=== PATIENT | male | born 1965 | race American Indian/Alaskan Native ===

== ENCOUNTER 2019-04-03 17:38 | Emergency (ER) | payer MEDICAID, OTHER | END 2019-04-03 18:49 | disposition left against medical advice (07) | LOC: DL.ED 17:38 | DX: Z53.21 Procedure and treatment not carried out due to patient leaving prior to being seen by health care provider (principal) ==

== ENCOUNTER 2019-04-04 13:06 | Emergency (ER) | payer MEDICAID ==
[2019-04-04 13:20] VITALS: BP 123/67; PULSE 80
[2019-04-04] MEDS ORDERED: Albuterol/Ipratropium 3.0-0.5 MG/3 ML Neb Soln NEB ONE (13:28)
[2019-04-04] MEDS ORDERED: Diphtheria,Pertussis(Acell),Tetanus Vaccine 0.5 ML SDV IM ONE (13:30)
--- NOTE | 2019-04-04 14:08 | EDM.PDOC ---
ED HPI GENERAL MEDICAL PROBLEM - General Chief Complaint: Laceration Stated Complaint: CUT BY TIN Time Seen by Provider: 04/04/19 13:15 Source of Information: Reports: Patient, RN, RN Notes Reviewed History Limitations: Reports: No Limitations - History of Present Illness INITIAL COMMENTS - FREE TEXT/NARRATIVE: Pt to ER with c/o cut on left wrist. Pt states he cut the wrist on tin last evening about 5:00pm. He states he came to the ER last night but it was very busy and he went home. Laceration is held together with steri strips. Patient states he states it has been a long time since he has had a tetanus vaccination. Patient is very concerned that he hit the bone with the tin, and is concerned that he will develop an infection. Denies fever or chills. Onset: Sudden Onset Date: 04/03/19 - Related Data Allergies Allergy/AdvReac Type Severity Reaction Status Date / Time No Known Allergies Allergy Verified 04/04/19 13:11 Home Meds: Home Meds Lisinopril 20 mg PO DAILY 08/03/14 [History] Aspirin [Halfprin] 81 mg PO DAILY 09/03/18 [History] Ibuprofen 200 mg PO ASDIRECTED PRN 09/03/18 [History] Past Medical History HEENT History: Reports: Impaired Vision, Other (See Below) Other HEENT History: TOP DENTURE PLATE. WEARS CORRECTIVE LENS Cardiovascular History: Reports: Hypertension Respiratory History: Reports: None Gastrointestinal History: Reports: None Genitourinary History: Reports: None Musculoskeletal History: Reports: Arthritis, Fracture, Other (See Below) Other Musculoskeletal History: FRACTURED LEFT ARM X3 WHEN YOUNG. FRACTURED HEEL ON LEFT FOOT. ROTATOR CUFF INJURY LEFT SHOULDER 2011 Neurological History: Reports: None Psychiatric History: Reports: None Endocrine/Metabolic History: Reports: None Hematologic History: Reports: None Immunologic History: Reports: None Oncologic (Cancer) History: Reports: None Dermatologic History: Reports: None - Infectious Disease History Infectious Disease History: Reports: None - Past Surgical History Head Surgeries/Procedures: Reports: None HEENT Surgical History: Reports: Oral Surgery Cardiovascular Surgical History: Reports: None Respiratory Surgical History: Reports: None GI Surgical History: Reports: None Male Surgical History: Reports: None Endocrine Surgical History: Reports: None Neurological Surgical History: Reports: None Musculoskeletal Surgical History: Reports: Shoulder Surgery Other Musculoskeletal Surgeries/Procedures:: left rotator cuff repair Oncologic Surgical History: Reports: None Dermatological Surgical History: Reports: None Social & Family History - Family History Family Medical History: Noncontributory - Tobacco Use Smoking Status *Q: Never Smoker Second Hand Smoke Exposure: Yes - Caffeine Use Caffeine Use: Reports: Coffee, Soda Other Caffeine Use: AVERAGE OF 2 CUPS OF COFFEE DAILY, 2-3 CANS OF SODA POP DAILY - Living Situation & Occupation Living situation: Reports: , with Family Occupation: Employed ED ROS GENERAL - Review of Systems Review Of Systems: ROS reveals no pertinent complaints other than HPI. ED EXAM, SKIN/RASH Exam: See Below Exam Limited By: No Limitations General Appearance: Alert, WD/WN, Anxious, Moderate Distress Eye Exam: Bilateral Eye: EOMI, Normal Inspection Ears: Normal External Exam, Hearing Grossly Normal Nose: Normal Inspection Throat/Mouth: Normal Inspection, Normal Voice, No Airway Compromise Head: Atraumatic, Normocephalic Neck: Normal Inspection, Supple, Non-Tender, Full Range of Motion Respiratory/Chest: No Respiratory Distress, Lungs Clear, Normal Breath Sounds, No Accessory Muscle Use, Chest Non-Tender Cardiovascular: Normal Peripheral Pulses, Regular Rate, Rhythm, No Edema, No Gallop, No JVD, No Murmur, No Rub Peripheral Pulses: 2+: Radial (L), Radial (R) GI/Abdominal: Normal Bowel Sounds, Soft, Non-Tender (Male) Exam: Deferred Rectal (Males) Exam: Deferred Back Exam: Normal Inspection, Full Range of Motion, NT Extremities: No Pedal Edema, Normal Capillary Refill, Arm Pain (left wrist), Limited Range of Motion (left wrist) Neurological: Alert, Oriented, CN II-XII Intact, Normal Cognition, Normal Gait, Normal Reflexes, No Motor/Sensory Deficits Psychiatric: Normal Affect, Normal Mood, Anxious Skin: Warm, Dry, Wound/Incision (7.5cm laceration to dorsal left wrist, held together with steri strips, no drainage, dry, mild erythema at margin edges.) Location, Skin: Upper Extremity, Left Characteristics: Linear Lymphatic: No Adenopathy Course - Vital Signs Last Recorded V/S: Last Vital Signs Temp 98.4 F 04/04/19 13:09 Pulse 80 04/04/19 13:09 Resp 16 04/04/19 13:09 BP 123/67 04/04/19 13:09 Pulse Ox 97 04/04/19 13:09 - Orders/Labs/Meds Orders: Active Orders 24 hr Category Date Time Status RT Aerosol Therapy [RC] ASDIRECTED Care 04/04/19 13:28 Inactive Vaccines to be Administered [RC] PER UNIT ROUTINE Care 04/04/19 13:30 Active Wrist Comp Min 3V Lt [CR] Urgent Exams 04/04/19 13:24 Taken Meds: Medications Discontinued Medications Generic Name Dose Route Start Last Admin Trade Name Kennedy PRN Reason Stop Dose Admin Albuterol/Ipratropium 3 ml 04/04/19 13:28 Duoneb 3.0-0.5 Mg/3 Ml NEB 04/04/19 13:29 ONETIME ONE Diphtheria/Tetanus/Acell Pertussis 0.5 ml 04/04/19 13:30 04/04/19 13:37 Adacel IM 04/04/19 13:31 0.5 ml .ONCE ONE Administration - Radiology Interpretation Free Text/Narrative:: Left wrist xray: FINDINGS: Bones/joints: There is no evidence of acute fracture. There is no evidence of joint malalignment or dislocation. Soft tissues: Normal. IMPRESSION: There is no evidence of acute fracture. Thank you for allowing us to participate in the care of your patient. Dictated and Authenticated by: Sebastian Chavez DO 04/04/2019 2:36 PM Central Time ([place] & [place]) See rad report Departure - Departure Time of Disposition: 14:41 Disposition: Home, Self-Care 01 Condition: Fair Clinical Impression: Laceration - Discharge Information *PRESCRIPTION DRUG MONITORING PROGRAM REVIEWED*: No *COPY OF PRESCRIPTION DRUG MONITORING REPORT IN PATIENT RICHIE: No Instructions: Laceration Care, Adult, [id number] Forms: ED Department Discharge Additional Instructions: Continue to monitor for signs of infection, redness, drainage, warmth Continue to use steri strips to the area to keep it together Keep area clean and dry Follow up with your primary care facility if no improvement RX: Cephalexin - My Orders Last 24 Hours: My Active Orders 04/04/19 13:24 Wrist Comp Min 3V Lt [CR] Urgent 04/04/19 13:28 RT Aerosol Therapy [RC] ASDIRECTED 04/04/19 13:30 Vaccines to be Administered [RC] PER UNIT ROUTINE - Assessment/Plan Last 24 Hours: My Active Orders 04/04/19 13:24 Wrist Comp Min 3V Lt [CR] Urgent 04/04/19 13:28 RT Aerosol Therapy [RC] ASDIRECTED 04/04/19 13:30 Vaccines to be Administered [RC] PER UNIT ROUTINE
== END 2019-04-04 14:55 | disposition home or self-care (01) ==
LOC: DL.ED 13:06
DX: S61.512A Laceration without foreign body of left wrist, initial encounter (principal); I10 Essential (primary) hypertension; M19.90 Unspecified osteoarthritis, unspecified site; Z23 Encounter for immunization; Z79.82 Long term (current) use of aspirin; Z79.899 Other long term (current) drug therapy; Z98.890 Other specified postprocedural states; W26.8XXA Contact with other sharp object(s), not elsewhere classified, initial encounter
CPT/HCPCS: 73110-LT; 90471; 90715; 99282; 99283

== ENCOUNTER 2021-03-14 10:27 | Emergency (ER) | payer MEDICAID ==
--- NOTE | 2021-03-14 10:35 | EDM.PDOC ---
ED HPI GENERAL MEDICAL PROBLEM - General Chief Complaint: ENT Problem Stated Complaint: [id number] THINKS HAS SPIDER IN EARS Time Seen by Provider: 03/14/21 10:35 Source of Information: Reports: Patient, Old Records, RN, RN Notes Reviewed History Limitations: Reports: No Limitations - History of Present Illness INITIAL COMMENTS - FREE TEXT/NARRATIVE: Pt presents to ER with c/o of suspected infection in/on both ears. The left ear became swollen and red with purulent drainage about 5 days ago. Pt's friend tried to squeeze pus from the ear, but that made it much worse. Pt thought maybe a spider bit his ear, but then yesterday the right ear started having the same symptoms. Denies fever, chills, N/V or any other symptoms. Onset: Gradual Duration: Day(s): (5) Location: Reports: Other (Ears) Quality: Reports: Ache, Burning Severity: Severe Improves with: Reports: None Worsens with: Reports: None Associated Symptoms: Reports: No Other Symptoms Bilateral Ear Pain Score (Numeric/FACES): 4 - Related Data Allergies Allergy/AdvReac Type Severity Reaction Status Date / Time No Known Allergies Allergy Verified 03/14/21 10:35 Home Meds: Home Meds Lisinopril 20 mg PO DAILY 08/03/14 [History] Aspirin [Halfprin] 81 mg PO DAILY 09/03/18 [History] Ibuprofen 200 mg PO ASDIRECTED PRN 09/03/18 [History] Cyclobenzaprine [Flexeril] 10 mg PO TID PRN 03/14/21 [History] Past Medical History HEENT History: Reports: Impaired Vision, Other (See Below) Other HEENT History: TOP DENTURE PLATE. WEARS CORRECTIVE LENS Cardiovascular History: Reports: Hypertension Respiratory History: Reports: None Gastrointestinal History: Reports: None Genitourinary History: Reports: None Musculoskeletal History: Reports: Arthritis, Fracture, Other (See Below) Other Musculoskeletal History: FRACTURED LEFT ARM X3 WHEN YOUNG. FRACTURED HEEL ON LEFT FOOT. ROTATOR CUFF INJURY LEFT SHOULDER 2010 Neurological History: Reports: None Psychiatric History: Reports: None Endocrine/Metabolic History: Reports: None Hematologic History: Reports: None Immunologic History: Reports: None Oncologic (Cancer) History: Reports: None Dermatologic History: Reports: None - Infectious Disease History Infectious Disease History: Reports: None - Past Surgical History Head Surgeries/Procedures: Reports: None HEENT Surgical History: Reports: Oral Surgery Cardiovascular Surgical History: Reports: None Respiratory Surgical History: Reports: None GI Surgical History: Reports: None Male Surgical History: Reports: None Endocrine Surgical History: Reports: None Neurological Surgical History: Reports: None Musculoskeletal Surgical History: Reports: Shoulder Surgery Other Musculoskeletal Surgeries/Procedures:: left rotator cuff repair Oncologic Surgical History: Reports: None Dermatological Surgical History: Reports: None Social & Family History - Family History Family Medical History: No Pertinent Family History - Caffeine Use Caffeine Use: Reports: Coffee, Soda Other Caffeine Use: AVERAGE OF 2 CUPS OF COFFEE DAILY, 2-3 CANS OF SODA POP DAILY - Living Situation & Occupation Living situation: Reports: , with Family Occupation: Employed ED ROS ENT - Review of Systems Review Of Systems: Comprehensive ROS is negative, except as noted in HPI. ED EXAM, ENT - Physical Exam Exam: See Below Exam Limited By: No Limitations General Appearance: Alert, WD/WN, No Apparent Distress Ears: Hearing Grossly Normal, Auricular Erythema, Auricular Tenderness, Canal Discharge, Canal Material, Canal Swelling. No: Mastoid Swelling, Mastoid Tenderness, TM Bulging, TM Dullness, TM Erythema Nose: Normal Inspection, Normal Mucousa, No Blood Mouth/Throat: Normal Inspection, Normal Gums, Normal Lips, Normal Oropharynx, Normal Teeth Head: Atraumatic, Normocephalic Neck: Normal Inspection, Supple, Non-Tender, Full Range of Motion Respiratory/Chest: No Respiratory Distress, Lungs Clear, Normal Breath Sounds, No Accessory Muscle Use, Chest Non-Tender Cardiovascular: Regular Rate, Rhythm Extremities: Normal Inspection Neurological: Alert, Oriented, No Motor/Sensory Deficits Psychiatric: Normal Mood Skin: Warm, Dry Course - Vital Signs Last Recorded V/S: Last Vital Signs Temp 98 F 03/14/21 10:37 Pulse 82 03/14/21 10:37 Resp 20 03/14/21 10:37 BP 132/93 H 03/14/21 10:37 Pulse Ox 97 03/14/21 10:37 Departure - Departure Time of Disposition: 10:45 Disposition: Home, Self-Care 01 Condition: Good Clinical Impression: Cellulitis of both external ears Otitis externa Qualifiers: Otitis externa type: other infective Chronicity: acute Laterality: bilateral Qualified Code(s): H60.393 - Other infective otitis externa, bilateral - Discharge Information *PRESCRIPTION DRUG MONITORING PROGRAM REVIEWED*: Not Applicable *COPY OF PRESCRIPTION DRUG MONITORING REPORT IN PATIENT RICHIE: Not Applicable Instructions: Cellulitis, Adult, Otitis Externa Forms: ED Department Discharge Additional Instructions: Rx: Ofloxacin Otic Solution Rx: Clindamycin 300mg Rx: Bactroban (Mupirocin) Ointment 2% Follow up in clinic in 3 to 4 days for recheck. Sepsis Event Note (ED) - Focused Exam Vital Signs: Vital Signs Temp Pulse Resp BP Pulse Ox 03/14/21 10:37 98 F 82 20 132/93 H 97
[2021-03-14 10:42] VITALS: BP 132/93; PULSE 82
== END 2021-03-14 10:52 | disposition home or self-care (01) ==
LOC: DL.ED 10:27
DX: H60.393 Other infective otitis externa, bilateral (principal); H60.13 Cellulitis of external ear, bilateral; I10 Essential (primary) hypertension; Z79.82 Long term (current) use of aspirin; Z79.899 Other long term (current) drug therapy
CPT/HCPCS: 87070; 87077; 87186; 99283

== ENCOUNTER 2023-05-11 18:01 | Emergency (ER) | payer MEDICARE, MEDICAID ==
[2023-05-11] MEDS ORDERED: Sodium Chloride 0.9% 10 ML Syringe FLUSH PRN (18:10)
[2023-05-11 18:30] LABS: BASOPHILS PERCENT AUTO 0.3 % (0.0-1.0); HEMATOCRIT 44.9 % (40.0-54.0); HEMOGLOBIN 15.1 g/dL (14.0-18.0); LYMPHOCYTES PERCENT AUTO 18.9 % (20.5-50.1); MEAN CORPUSCULAR HEMOGLOBIN 29.9 pg (27.0-34.0); MEAN CORPUSCULAR HGB CONC 33.6 g/dL (33.0-35.0); MEAN CORPUSCULAR VOLUME 88.9 fL (80-100); NEUTROPHILS PERCENT AUTO 70.8 % (42.2-75.2); PLATELET COUNT,PLT 464 10^3/uL (150-450); RED BLOOD CELL COUNT 5.05 10^6/uL (4.6-6.2); WHITE BLOOD CELL COUNT,WBC 8.8 10^3/uL (5.0-10.0)
[2023-05-11] MEDS ORDERED: Sodium Chloride 0.9% 1,000 ML IV ONE (18:35)
[2023-05-11 18:50] LABS: A/G RATIO 1.1; ALANINE AMINOTRANSFERASE,ALT 22 U/L (16-63); ALBUMIN 4.1 g/dL (3.4-5.0); ALKALINE PHOSPHATASE 93 U/L (46-116); AMYLASE 41 U/L (25-115); ANION GAP 16.6 mEq/L (7-13); ASPARTATE AMNIOTRANSFERASE,AST 15 U/L (15-37); BILIRUBIN TOTAL 0.7 mg/dL (0.2-1.0); BLOOD UREA NITROGEN,BUN 7 mg/dL (7-18); CALCIUM 9.2 mg/dL (8.5-10.1); CARBON DIOXIDE,CO2 24 mmol/L (21-32); CHLORIDE,CL 101 mmol/L (98-107); EST CRCL DRUG DOSING (CG) 75.28 mL/min; GLUCOSE RANDOM 132 mg/dL (70-99); LIPASE 42 U/L (73-393); MAGNESIUM 1.5 mg/dL (1.8-2.4); POTASSIUM,K 4.6 mmol/L (3.5-5.1); SODIUM,NA 137 mmol/L (136-145)
[2023-05-11 18:52] LABS: C-REACTIVE PROTEIN < 0.2 mg/dL (0.0-0.9); ESTIMATED GFR 87 mL/min (>=60)
[2023-05-11 18:53] LABS: APPEARANCE,URINE CLEAR (CLEAR); BILIRUBIN,URINE NEGATIVE (NEGATIVE); COLOR,URINE YELLOW (YELLOW); GLUCOSE,URINE NEGATIVE (NEGATIVE); KETONES,URINE 40 (NEGATIVE); LEUKOCYTE ESTERASE,URINE NEGATIVE (NEGATIVE); NITRITE,URINE NEGATIVE (NEGATIVE); OCCULT BLOOD,URINE TRACE-INTACT (NEGATIVE); PROTEIN,URINE NEGATIVE (NEGATIVE); UROBILINOGEN,URINE 0.2 mg/dL (0.2-1.0)
[2023-05-11 18:53] LABS: LACTIC ACID 1.8 mmol/L (0.4-2.0)
[2023-05-11 18:56] LABS: AMPHETAMINES,URINE NEGATIVE (NEGATIVE); BARBITURATES,URINE NEGATIVE (NEGATIVE); BENZODIAZEPINE,URINE NEGATIVE (NEGATIVE); MDMA (ECSTASY), URINE NEGATIVE (NEGATIVE); METHADONE,URINE NEGATIVE (NEGATIVE); METHAMPHETAMINES,URINE POSITIVE (NEGATIVE); OPIATES,URINE NEGATIVE (NEGATIVE); OXYCODONE,URINE NEGATIVE (NEGATIVE); PHENCYCLIDINE,URINE NEGATIVE (NEGATIVE); TCA,URINE NEGATIVE (NEGATIVE)
[2023-05-11 19:03] LABS: AMORPHOUS SEDIMENT,URINE FEW /HPF (NOT SEEN); BACTERIA,URINE RARE /HPF (0-FEW/HPF); EPITHELIAL CELLS,URINE FEW /HPF (NOT SEEN); MUCUS,URINE MODERATE /LPF (NOT SEEN); WBC,URINE 0-5 /HPF (0-5/HPF)
[2023-05-11 20:44] VITALS: BP 150/95; PULSE 85
== END 2023-05-11 20:58 | disposition home or self-care (01) ==
LOC: DL.ED 18:01
DX: K59.09 Other constipation (principal); I10 Essential (primary) hypertension; F17.210 Nicotine dependence, cigarettes, uncomplicated; M19.90 Unspecified osteoarthritis, unspecified site; Z79.82 Long term (current) use of aspirin; Z79.899 Other long term (current) drug therapy
CPT/HCPCS: 36415; 74176; 80053; 80305-QW; 81001; 82150; 83605; 83690; 83735; 85025; 86140; 87040; 96360; 96361; 99284; 99284-25; J3490; J7030